=== PATIENT | female | born 1950 | race Caucasian/White ===

== ENCOUNTER 2024-01-23 15:45 | Emergency (ER) | payer MEDICARE, SELFPAY ==
--- NOTE | ~2024-01-23 | XR_ITS ---
EXAMINATION: XR chest 2V Exam Date/Time: 01/23/2024 16:08 VAN OWNER OPERATOR HISTORY: cough x 1 week, with off and on fever Comparison: None. RESULT: Lines, tubes, and devices: None. Lungs and pleura: Ill-defined 1.6 cm opacity left lower lung without definite correlate in the later al view. Cardiomediastinal silhouette: Unremarkable. Other: No acute osseous or upper abdominal finding. Mild anterior wedge deformity of a lower thoraci c vertebral body. IMPRESSION: Ill-defined 1.6 cm opacity in the right lower lung, may represent a focus of infection or artifact. R ecommend radiographic follow-up to ensure resolution and/or comparison to outside studies if availabl e. Reviewed, dictated and finalized at location K. OWNER OPERATOR IMPRESSION: Ill-defined 1.6 cm opacity in the right lower lung, may represent a focus of in fection or artifact. Recommend radiographic follow-up to ensure resolution and/ or comparison to outside studies if available.
[2024-01-23 16:04] VITALS: BP 102/68; PULSE 85; RESP 16; TEMP 36.5; O2SAT 100
--- NOTE | 2024-01-23 17:27 | ED.URI ---
HPI - URI/Sore Throat General Chief Complaint: Upper Respiratory Infection Stated Complaint: Cough Time Seen by Provider: 01/23/24 17:20 History of Present Illness HPI Narrative: 73-year-old female presenting with cough and URI symptoms for the last week. States that her cough has not gotten any better and it seems to be worse whenever she is lying down. Has chest discomfort when she coughs but denies shortness of breath or chest pain. Feels that she has not been improving so she became concerned. Complains of nasal congestion as well. No further complaints. Related Data Allergies Allergy/AdvReac Type Severity Reaction Status Date / Time No Known Allergies Allergy Verified 01/23/24 16:06 Review of Systems Review of Systems: All systems reviewed & are unremarkable except as noted in HPI and below Exam Narrative: GENERAL: Nontoxic, no acute distress, pleasant cooperative HEAD: Normocephalic, atraumatic. EYES: PERRLA and EOMI. ENT: + nasal congestion. Mucous membranes moist. NECK: Supple. CHEST: Clear to auscultation. No respiratory distress. HEART: Regular rate and rhythm ABDOMEN: Soft, nontender, nondistended EXTREMITIES: Normal range of motion SKIN: Warm, dry, no rash. NEURO: Alert and oriented x3. PSYCH: Normal mood and affect. Course Vital Signs Vital signs: Vital Signs Temperature 97.7 F 01/23/24 16:04 Pulse Rate 85 01/23/24 16:04 Respiratory Rate 16 01/23/24 16:04 Blood Pressure 102/68 01/23/24 16:04 Pulse Oximetry 100 01/23/24 16:04 Temperature 97.9 F 01/23/24 18:43 Pulse Rate 66 01/23/24 18:43 Respiratory Rate 18 01/23/24 18:43 Blood Pressure 123/73 01/23/24 18:43 Pulse Oximetry 97 01/23/24 18:43 Oxygen Delivery Room Air 01/23/24 17:29 MDM - URI/Sore Throat MDM Narrative Medical decision making narrative: 73-year-old female presenting with cough and URI symptoms. Vitals are within normal limits. Exam remarkable for the above. Chest x-ray shows an ill defined opacity concerning for a focus of infection or artifact. She is positive for influenza A. Will treat her for possible superimposed bacterial pneumonia with doxy and Augmentin. Recommend close PCP follow-up. Appropriate return precautions given. Discharged in stable condition. Differential Diagnosis Differential diagnosis: Likely upper respiratory infection, viral infection, bronchitis and influenza Medical Records Attestation: I reviewed the patient's medical records. Lab Data Attestation: I reviewed the patient's lab results. Labs: Lab Results 01/23/24 Range/Units 17:31 Influenza A (RT-PCR) Positive A (Negative) Influenza B (RT-PCR) Negative (Negative) RSV (RT-PCR) Negative (Negative) SARS-CoV-2 RNA (RT-PCR) Negative (Negative) Imaging Data Radiologist's impression: ITS Impressions Chest X-Ray 01/23/24 16:17 IMPRESSION: Ill-defined 1.6 cm opacity in the right lower lung, may represent a focus of infection or artifact. Recommend radiographic follow-up to ensure resolution and/or comparison to outside studies if available. Critical Care Time Critical Care Time Critical Care Time: No Discharge Plan Discharge Clinical Impression: Influenza, Pneumonia Patient Disposition: Home, Self-Care Condition: Stable Instructions: Antibiotic Form, Influenza (ED), Pneumonia (ED) Additional Instructions: You tested positive for influenza A today. We are also treating you for superimposed pneumonia with 2 different antibiotics. Please complete these as prescribed. Please follow-up closely at the number below with primary care. If your symptoms worsen or other concerning symptoms arise, please return to the ER. Patient Language: Ukrainian Prescriptions: New doxycycline hyclate 100 mg tablet 100 mg PO BID Qty: 10 0RF amoxicillin-pot clavulanate 875-125 mg tablet 1 tablet PO Q12H Qty: 10 0RF Follow-up/Referrals: Dr. Randhawa [Other]
[2024-01-23 17:29] VITALS: O2SAT 100
[2024-01-23 18:14] LABS: Influenza A QL RT-PCR Positive (Negative); Influenza B QL RT-PCR Negative (Negative); RSV RNA, RT-PCR Negative (Negative); SARS-CoV-2 RNA PCR Negative (Negative)
[2024-01-23] MEDS: AMOXICILLIN/CLAVULANATE K 875-125 MG TAB 1 TABLET PO (18:33)
[2024-01-23] MEDS: DOXYCYCLINE HYCLATE 100 MG TABLET PO (18:33)
[2024-01-23 18:43] VITALS: BP 123/73; PULSE 66; RESP 18; TEMP 36.6; O2SAT 97
== END 2024-01-23 20:02 | disposition home or self-care (01) ==
PROVIDERS: Emergency Provider Emergency Medicine
DX: J10.1 Influenza due to other identified influenza virus with other respiratory manifestations (principal); J18.9 Pneumonia, unspecified organism; Z20.822 Contact with and (suspected) exposure to COVID-19
CPT/HCPCS: 71046; 87637; 99283; A9270

== ENCOUNTER 2025-01-07 17:38 | Emergency (ER) | payer MEDICARE, SELFPAY ==
--- NOTE | ~2025-01-07 | XR_ITS ---
EXAMINATION: XR chest 2V, 01/07/2025 18:23 ENROLLMENT MANAGEMENT VICE PRESIDENT HISTORY: Chest Pain with Breathing COMPARISON: No comparisons available. Technique: 2 views obtained. Findings: The lungs are clear, no effusion. No pneumothorax. Heart is normal size. Mediastinal and hilar contours are within normal limits. Bony thorax no acute abnormality. Impression: No acute cardiopulmonary abnormality. Reviewed, dictated and finalized at location P. LLMENT MANAGEMENT VICE PRESIDENT Impression: No acute cardiopulmonary abnormality.
--- NOTE | 2025-01-07 18:02 | ECG_ITS ---
Test Date: 2025-01-07 18:10:36 Measurements Intervals [place] Rate: 69 P: 36 SD: 164 QRS: 68 QRSD: 82 T: 79 QT: 384 QTc: 414 Interpretive Statements SINUS RHYTHM NORMAL ELECTROCARDIOGRAM No previous ECG available for comparison Electronically Signed On 01-08-2025 09:15:12 [employer]ENEWABLE [employer]GY PROJECT MANAGER by Vern Katz M.D.
[2025-01-07 18:03] VITALS: BP 111/68; PULSE 82; RESP 18; TEMP 36.2; O2SAT 99
[2025-01-07 18:29] LABS: Hematocrit 37.4 % (37.0-47.0); Hemoglobin 12.5 g/dL (12.0-15.0); Immature Granulocyte Percent A 0.3 % (0-0.5); Lymphocytes Absolute Auto 2.33 K/mm3 (0.9-3.2); Mean Corpuscular HGB Conc 33.4 g/dl (32-36); Mean Corpuscular Hemoglobin 30.6 pg (26-34); Mean Corpuscular Volume 91.7 fl (80-100); Nucleated Red Blood Cells Absolute Auto 0.000 K/mm3 (0.0-0.012); Nucleated Red Blood Cells Perc 0.0 % (0.0-0.2); Platelet Count Result 336 k/mm3 (150-375); Red Blood Count 4.08 M/mm3 (4.2-5.4); White Blood Count 7.8 K/mm3 (4.5-10.0)
[2025-01-07 18:40] LABS: Alanine Aminotransferase 26 U/L (6-35); Albumin Level 4.5 g/dL (3.5-5.1); Alkaline Phosphatase 112 U/L (38-126); Anion Gap 6 mmol/L (4-12); Aspartate Amino Transferase 42 U/L (14-36); Bilirubin,Total 0.4 mg/dL (0.2-1.3); Blood Urea Nitrogen 10 mg/dL (7-17); Calcium 9.5 mg/dL (8.4-10.2); Carbon Dioxide 29 mmol/L (22-30); Chloride 101 mmol/L (98-107); Estimated CRCL calculation 43 ml/min; Estimated Glomerular Filt Rate > 60; Glucose 99 mg/dL (65-110); Lipase 119 U/L (23-300); Potassium 4.4 mmol/L (3.4-5.0); Sodium 136 mmol/L (137-145); Total Protein 8.1 g/dL (6.3-8.2)
[2025-01-07 18:52] LABS: Troponin I < 0.012 ng/mL (0.000-0.034)
[2025-01-07 19:01] LABS: INR 1.0; Partial Thromboplastin Time 31.1 Seconds (22.3-36.8); Prothrombin Time 12.7 Seconds (11.1-14.7)
--- NOTE | 2025-01-07 21:22 | ECG_ITS ---
Test Date: 2025-01-07 21:40:15 Measurements Intervals [place] Rate: 78 P: 11 ME: 144 QRS: 61 QRSD: 88 T: 73 QT: 384 QTc: 438 Interpretive Statements SINUS RHYTHM NORMAL ECG Compared to ECG 01/07/2025 18:10:36 No significant changes Electronically Signed On 01-08-2025 09:17:31 RAILROAD CAR CLEANER by Vern Katz M.D.
[2025-01-07 21:58] LABS: Troponin I < 0.012 ng/mL (0.000-0.034)
[2025-01-07 22:12] VITALS: BP 136/66; PULSE 77; RESP 16; TEMP 36.4; O2SAT 98
[2025-01-07 22:24] VITALS: BP 136/66; PULSE 82; RESP 16; TEMP 37.1; O2SAT 100
--- NOTE | 2025-01-07 23:03 | ED.RECABL ---
HPI - Recheck/Abnormal Lab/Rx General Chief Complaint: Recheck/Abnormal Lab/Rx Stated Complaint: abn ekg Time Seen by Provider: 01/07/25 21:15 History of Present Illness HPI narrative: Patient presenting here with a slight chest cold that started yesterday, with some congestion, very slight sore throat, sensation of some pressure to her chest, worse when she breathes or coughs. Related Data Allergies Allergy/AdvReac Type Severity Reaction Status Date / Time No Known Allergies Allergy Verified 01/23/24 16:06 Exam Narrative: EXAMINATION OF ORGAN SYSTEMS/BODY AREAS: Constitutional: Vital signs per nursing GENERAL:[No acute distress, non-toxic appearing.] HEAD: Normal with no signs of head trauma. EYES: EOMI, conjunctiva normal ENT: Hearing grossly intact LUNGS: Nonlabored breathing. Clear to auscultation bilaterally HEART: [Regular rate and rhythm] ABD: [Soft], [nontender to palpation] EXT: Normal range of motion SKIN: [No rashes or lesions.] NEURO: [Alert and oriented x 3. No gross focal sensory or strength deficits.] PSYCH: Normal affect Course Vital Signs Vital signs: Vital Signs Temperature 97.2 F L 01/07/25 18:03 Pulse Rate 82 01/07/25 18:03 Respiratory Rate 18 01/07/25 18:03 Blood Pressure 111/68 01/07/25 18:03 Pulse Oximetry 99 01/07/25 18:03 Oxygen Delivery Room Air 01/07/25 18:03 Temperature 98.7 F 01/07/25 22:24 Pulse Rate 82 01/07/25 22:24 Respiratory Rate 16 01/07/25 22:24 Blood Pressure 136/66 01/07/25 22:24 Pulse Oximetry 100 01/07/25 22:24 Oxygen Delivery Room Air 01/07/25 22:12 MDM - Recheck/Abnormal Lab/Rx MDM Narrative Medical decision making narrative: ED COURSE AND MEDICAL DECISION MAKINF presenting with chest pain amid URI symptoms the last 2 days. EKG done in triage negative for acute ischemic changes. Cardiac workup is initiated. EKG: Performed in triage and interpreted by me. Normal sinus rhythm. Rate 69. Normal axis. WA normal. QRS duration normal. QTc normal. No pathologic Q waves. No ST segment elevation or depression to suggest acute ischemia. No RV strain pattern. Chest x-ray clear without any abnormality. HEART score is 2 with no acute ischemic changes on EKG and 2 negative troponins making ACS unlikely. [place] low risk with no DVT symptoms making PE unlikely. Presentation not consistent with dissection or aneurysm without radiation of pain or pulse deficits. CXR negative for mediastinal widening. No abdominal pain or signs of sepsis that would be concerning for esophageal perforation or mediastinitis. No cardiomegaly or JVD to suggest pericardial effusion/tamponade. HEART Score: 2. (Risk of major adverse cardiac events over 6 weeks: Score of 0-3 is low risk <2% ; Score of 4-6 is moderate risk ~12-15%; Score of 7-12 is high risk ~50%). - History - [0]. (Not suspicious 0; moderately suspicious 1; highly suspicious 2). - EKG - [0]. (No ST changes 0; non-specific ST/T changes 1; ST depression 2). - Age - 2. (<45 = 0; 46-65 = 1; >65 = 2). - Risk factors - [0]. (0 factors = 0; 1-2 factors = 1; >2 factors = 2). - Troponin - [0]. (Normal = 0; Indeterminate = 1; High = 2). On repeat evaluation just prior to discharge, the patient is no acute distress. I had a long discussion with the patient and with shared decision making, she is comfortable with outpatient management. She was given clear return instructions by myself in person as well as on discharge paperwork. Lab Data 01/07/25 18:20 01/07/25 18:20 Labs: Lab Results 01/07/25 01/07/25 Range/Units 18:20 21:30 WBC 7.8 (4.5-10.0) K/mm3 RBC 4.08 L (4.2-5.4) M/mm3 Hgb 12.5 (12.0-15.0) g/dL Hct 37.4 (37.0-47.0) % MCV 91.7 (80-100) fl MCH 30.6 (26-34) pg MCHC 33.4 (32-36) g/dl RDW 13.4 (11.5-14.5) % Plt Count 336 (150-375) k/mm3 MPV 9.7 (7.4-10.4) fl Immature Gran % (Auto) 0.3 (0-0.5) % Neut % (Auto) 54.5 (45.5-73.1) % Lymph % (Auto) 30.1 (18.3-44.2) % [place] % (Auto) 12.5 H (2.6-8.5) % Eos % (Auto) 2.2 (0-4.4) % Baso % (Auto) 0.4 (0.2-1.2) % Lymph # (Auto) 2.33 (0.9-3.2) K/mm3 [place] # (Auto) 1.0 H (0.1-0.6) K/mm3 Eos # (Auto) 0.2 (0-0.3) K/mm3 Baso # (Auto) 0.0 (0.0-0.1) K/mm3 Abs Immat Gran (auto) 0.02 (0.00-0.031) K/mm3 Absolute Neuts (auto) 4.2 (1.3-6.7) K/mm3 Absolute Nucleated RBC 0.000 (0.0-0.012) K/mm3 Nucleated RBC % 0.0 (0.0-0.2) % PT 12.7 (11.1-14.7) Seconds INR 1.0 APTT 31.1 (22.3-36.8) Seconds Sodium 136 L (137-145) mmol/L Potassium 4.4 (3.4-5.0) mmol/L Chloride 101 (98-107) mmol/L Carbon Dioxide 29 (22-30) mmol/L Anion Gap 6 (4-12) mmol/L BUN 10 (7-17) mg/dL Creatinine 0.69 L (0.7-1.0) mg/dL Estim Creat Clear Calc 43 ml/min Estimated GFR > 60 (59 - ) Glucose 99 (65-110) mg/dL Calcium 9.5 (8.4-10.2) mg/dL Total Bilirubin 0.4 (0.2-1.3) mg/dL AST 42 H (14-36) U/L ALT 26 (6-35) U/L Alkaline Phosphatase 112 (38-126) U/L Troponin I < 0.012 < 0.012 (0.000-0.034) ng/mL Total Protein 8.1 (6.3-8.2) g/dL Albumin 4.5 (3.5-5.1) g/dL Lipase 119 (23-300) U/L Discharge Plan Discharge Clinical Impression: URI, acute, Atypical chest pain Patient Disposition: Home Condition: Stable Instructions: Chest Pain (ED), Upper Respiratory Infection (ED) Additional Instructions: Your heart enzymes here were normal, your eat chest x-ray does not show any pneumonia thankfully. Please follow-up with primary care doctor, you can take Tylenol including as needed for symptoms and feel free to return to the ER if your symptoms get worse. Patient Language: Portuguese Prescriptions: No Action doxycycline hyclate 100 mg tablet 100 mg PO BID Qty: 10 0RF amoxicillin-pot clavulanate 875-125 mg tablet 1 tablet PO Q12H Qty: 10 0RF Follow-up/Referrals: Jorge Luis,MD Melonie [Primary Care Provider, Unknown]
== END 2025-01-07 22:26 | disposition home or self-care (01) ==
PROVIDERS: Emergency Medicine; Emergency Provider Emergency Medicine; PCP Internal Medicine
DX: J06.9 Acute upper respiratory infection, unspecified (principal); R07.89 Other chest pain
CPT/HCPCS: 36415; 71046; 80053; 83690; 84484; 85025; 85610; 85730; 93005; 99284